=== PATIENT | male | born 1980 | race Two or more races ===

== ENCOUNTER 2018-06-30 23:39 | Emergency (ER) | payer OTHER ==
[~2018-06-30] VITALS: Ht 182.9 cm; Wt 104.3 kg
== END 2018-07-01 01:58 | disposition home or self-care (01) ==
LOC: ER 23:39
DX: S80.02XA Contusion of left knee, initial encounter (principal); W18.09XA Striking against other object with subsequent fall, initial encounter; Y93.89 Activity, other specified; Y92.098 Other place in other non-institutional residence as the place of occurrence of the external cause; Y99.8 Other external cause status